=== PATIENT | female | born 1995 | race Two or more races ===

== ENCOUNTER 2017-06-06 03:43 | Emergency (ER) | payer OTHER ==
[~2017-06-06] VITALS: Ht 154.9 cm; Wt 68.0 kg
[~2017-06-06 03:43] MED LIST: AMOX1TAB12 PO; BACTROBAN OINT22 GM TP; CEFADROXIL500 MG PO; DICY20TA PO; KETO10TA2 PO; PROTONIX40 MG PO; ZANTAC300 MG PO; ZOFRAN4 MG PO
[2017-06-06] MEDS ORDERED: KETO10TA2 PO (08:31)
[2017-06-06] MEDS ORDERED: KEFLEX500 MG PO ×2 (08:31)
== END 2017-06-06 08:35 | disposition home or self-care (01) ==
LOC: ER 03:43
DX: R10.32 Left lower quadrant pain (principal)